=== PATIENT | male | born 1950 | race African-American/Black ===

== ENCOUNTER 2019-01-16 08:11 | Day surgery (SDC) ==
[~2019-01-16 08:11] MED LIST: BRIMONIDINE TARTRATE 0.2% OPTH SOL OP PRN; BSS WITH EPINEPHRINE OP ONE; DEX-MOXI-KETOR OPTH INJ 1/0.5/0.4 MG/ML IO ONE; LIDOCAINE 1%/PHENYLEPHRINE 1.5% BSS (SURGERY) INTRAOCULA ONE; ZOFRAN 4 MG/2 ML IVP ONE
[2019-01-16] MEDS ORDERED: LIDOCAINE 1% 20 ML MDV ID STA (08:30)
[2019-01-16] MEDS: BETADINE OPTH PREP OP PRN ×2 (08:40→09:05)
[2019-01-16] MEDS: CYCLOGYL 2% OPTH OP PRN ×3 (08:40→08:50)
[2019-01-16] MEDS: TETRACAINE 0.5% UNIT-DOSE OP PRN ×3 (08:40→09:15)
[2019-01-16] MEDS ORDERED: VERSED ONE (09:12)
[2019-01-16] MEDS ORDERED: ZOFRAN 4 MG/2 ML ONE (09:12)
[2019-01-16] MEDS ORDERED: SUBLIMAZE ONE (09:12)
[2019-01-16 12:44] VITALS: TEMP 97.2
[2019-01-16 16:07] VITALS: BP 132/66
== END 2019-01-16 10:10 | disposition home or self-care (01) ==
LOC: SURG 08:11
PROVIDERS: ATTEND Ophthalmology
DX: H25.811 Combined forms of age-related cataract, right eye (principal)

== ENCOUNTER 2019-01-30 07:18 | Day surgery (SDC) ==
[~2019-01-30 07:18] MED LIST changes: +LIDOCAINE 1% 20 ML MDV ID STA
[2019-01-30] MEDS: CYCLOGYL 2% OPTH OP PRN ×3 (07:30→07:40)
[2019-01-30] MEDS: TETRACAINE 0.5% UNIT-DOSE OP PRN ×2 (07:30→08:04)
[2019-01-30] MEDS: BETADINE OPTH PREP OP PRN ×2 (07:30→08:04)
[2019-01-30] MEDS ORDERED: VERSED ONE (08:00)
[2019-01-30] MEDS ORDERED: ROBINOL ONE (08:00)
[2019-01-30] MEDS ORDERED: ZOFRAN 4 MG/2 ML ONE (08:00)
[2019-01-30] MEDS ORDERED: SUBLIMAZE ONE (08:00)
[2019-01-30 10:32] VITALS: TEMP 97.2
[2019-02-02 16:50] VITALS: BP 112/68
== END 2019-01-30 09:00 | disposition home or self-care (01) ==
LOC: SURG 07:18
PROVIDERS: ATTEND Ophthalmology
DX: H25.812 Combined forms of age-related cataract, left eye (principal)